=== PATIENT | male | born 1990 | race African-American/Black ===

== ENCOUNTER 2019-11-14 10:25 | Emergency (ER) | payer MEDICAID ==
[~2019-11-14] VITALS: Ht 172.7 cm; Wt 65.7 kg
[2019-11-14 10:28] VITALS: BP 124/83
[2019-11-14] MEDS ORDERED: KETOROLAC 30MG/ML VIAL IM ONE (11:00)
== END 2019-11-14 12:00 | disposition home or self-care (01) ==
LOC: ER 10:56
DX: R07.81 Pleurodynia (principal); Z98.890 Other specified postprocedural states
CPT/HCPCS: 71045; 96372; 99283; J1885